=== PATIENT | male | born 1945 | race Caucasian/White ===

== ENCOUNTER 2018-07-30 13:57 | Emergency (ER) | payer OTHER ==
[~2018-07-30] VITALS: Ht 165.1 cm; Wt 72.6 kg
[~2018-07-30 13:57] MED LIST: AMLODIPINE BESY10 M1 PO; CIPROFLOXACIN500 MG PO; COZAAR100 MG PO; DIAZEPAM10 MG PO; KEPPRA500 MG PO; LAC PO; LIPI10 PO; MAGNESIUM OXID400 MG PO; METOPROLOL SUCC50 M2 PO; OMEPRAZOLE DR20 M1 PO; PHENYTOIN100 M1 PO; PREDNISONE2.5 MG PO; TYLENOL WITH CO1 TA2 PO; VIMPAT200 M1 PO
[2018-07-30 14:10] VITALS: Ht 165.1 cm; Wt 72.6 kg
[2018-07-30 16:10] VITALS: BP 156/99
== END 2018-07-30 16:10 | disposition home or self-care (01) ==
LOC: ED 13:57
DX: M54.5 Low back pain (principal); M25.561 Pain in right knee; I10 Essential (primary) hypertension; J44.9 Chronic obstructive pulmonary disease, unspecified; Z98.890 Other specified postprocedural states; Z88.0 Allergy status to penicillin; Z88.1 Allergy status to other antibiotic agents
CPT/HCPCS: J2270